=== PATIENT | female | born 1990 | race Hispanic/Latino ===

== ENCOUNTER 2020-02-16 13:52 | Emergency (ER) | payer MEDICAID, OTHER ==
[~2020-02-16 13:52] MED LIST: 0.9% SODIUM CHLORIDE 1000 ML IV BAG IV ONE
[2020-02-16] MEDS ORDERED: LIDOCAINE HCL 2% VISCOUS 15 ML UDCUP ONE (14:20)
[2020-02-16] MEDS ORDERED: MAG HYDROX/AL HYDROX/SIMETH ES 30 ML SUSP UDCUP ONE (14:20)
[2020-02-16] MEDS ORDERED: FAMOTIDINE/PF 20 MG/2 ML VIAL IV ONE (14:20)
[2020-02-16 14:23] LABS: BASOPHILS % (AUTO) 0.6 % (0.0-5.0); EOSINOPHILS % (AUTO) 5.7 % (0.0-8.0); LYMPHOCYTES % (AUTO) 27.7 % (21.0-51.0); MEAN CORPUSCULAR HEMOGLOBIN 28.8 pg (27.0-33.0); MEAN CORPUSCULAR HGB CONC 33.6 g/dL (32.0-36.0); MEAN CORPUSCULAR VOLUME 85.8 fL (79-99); MONOCYTES % (AUTO) 6.1 % (3.0-13.0); NEUTROPHILS % (AUTO) 59.7 % (40.0-77.0); PLATELET COUNT (AUTO) 315 K/uL (130-400); RED BLOOD CELL COUNT(AUTO) 5.13 MIL/uL (4.00-5.50); RED CELL DISTRIBUTION WIDTH 11.9 % (11.0-15.5); WHITE BLOOD COUNT (AUTO) 6.6 K/uL (4.8-10.8)
[2020-02-16 14:37] LABS: CREATININE 0.6 mg/dL (0.5-1.5); POTASSIUM 3.8 mmol/L (3.5-5.1)
[2020-02-16 14:41] LABS: ALBUMIN 3.6 g/dL (3.5-5.0); BILIRUBIN,TOTAL 0.6 mg/dL (0.2-1.0); TOTAL PROTEIN, SERUM 8.1 g/dL (6.0-8.3)
== END 2020-02-16 17:04 | disposition home or self-care (01) ==
LOC: EDH 13:52
DX: O26.63 Liver and biliary tract disorders in the puerperium (principal); K80.80 Other cholelithiasis without obstruction; O99.63 Diseases of the digestive system complicating the puerperium; K29.70 Gastritis, unspecified, without bleeding; O99.53 Diseases of the respiratory system complicating the puerperium; J45.909 Unspecified asthma, uncomplicated
CPT/HCPCS: 36415; 76705; 80053; 83690; 85025; 96361; 96374; 99284; J3490; J7030

== ENCOUNTER 2024-11-01 00:43 | Emergency (ER) | payer SELFPAY ==
[~2024-11-01] VITALS: Ht 160 cm; Wt 137.9 kg
--- NOTE | 2024-11-01 01:50 | ERN ---
ED Note History of Present Illness Stated Complaint: FALL Chief Complaint: Upper Extremity Pain/Injury Time Seen by MD: 00:54 Dictation: This is a 34-year-old morbidly obese female with a BMI of 54 presented to the emergency room with complaints of right arm pain extending from mid half of the upper arm to the forearm. She sustained a fall as she was getting out of truck and transferring something at 8:30 p.m. when are parents got caught in the truck hitch and she fell backwards and most of the weight was on the right elbow. She did not hit her head no loss of consciousness no nausea vomitings no other injuries. She is ambulatory she just came in because of the pain no obvious deformity noted. Temperature 98.1 pulse 76 respirations 18 blood pressure 125/83 with a pulse oximetry of 94% on room air Allergies: Coded Allergies: No Known Drug Allergies (Unverified Allergy, Unknown, 11/01/24) Home Meds Active Scripts Ketorolac Tromethamine (Toradol) 10 Mg Tab, 10 MG PO QID for pain for 5 Days, #20 TAB 0 Refills Prov:JUMA LOPEZ MD 11/01/24 Past Medical History Past Medical History: No Pertinent History Surgical History: None Surgical History Other: X3, CHOLECYSTECTOMY LMP: Oct 02, 2024 RN Note Reviewed/Agreed w/PFSH: Yes Review of System Dictation Constitutional: Negative for fever,chills, and weight loss Eyes: Negative for injury, pain,redness, and discharge ENT: Negative for injury,pain or swelling Cardiovascular: Negative for chest pain, palpitations, and edema Respiratory: Negative for shortness of breath, cough, and wheezing, Abdomen/GI: Negative for abdominal pain, nausea, vomiting, diarrhea, and constipation Back: Negative for injury and pain : Negative for injury, bleeding and discharge MS/Extremity: Negative for injury and deformity positive for right arm pain Skin: Negative for rash, and discoloration Neuro: Negative for headache, weakness, numbness, tingling, and seizure Psych: Negative for suicide ideation, homicidal ideation, and hallucinations Initial Vital Sign VS Vital Signs Date Time Temp Pulse Resp B/P (MAP) Pulse Ox O2 Delivery O2 Flow Rate FiO2 11/01/24 00:45 99.1 76 18 125/83 94 Room Air 0 11/01/24 02:39 21 Physical Exam Dictation General: awake, alert, NAD morbidly obese female Head/Face: Normocephalic, atraumatic Eyes: PERRL, EOMI, vision at baseline ENT: oral cavity clear, TMs clear, no signs of infection Neck: Trachea midline, supple, no nuchal rigidity Cardiovascular: RRR, normal S1/S2, No MRGs, no JVD Respiratory: CTAB, no respiratory distress, No rales or wheezes Abdomen: Soft, non-tender, non-distended, normal bowel sounds, no guarding or rebound. Skin: Warm, dry, normal turgor, no rash MS/Extremity: Pulses equal, no cyanosis, neurovascular intact, FROM able to move the right upper extremity but pain and tenderness on movement. No abrasions or obvious deformities were noted. Neuro: COAx4, GCS 15, strength 5/5, CN 2-12 intact, normal cerebellar exam, normal gait, Psych: Normal behavior, mood, and affect normal Extremities-trace edema without any palpable cords, Homans sign is negative Results (Laboratory/Radiology) Labs Reviewed?: Yes ED Course ED Course Orders Procedure Category Date Status Time Forearm 2vws Rt RAD 11/01/24 Resulted 00:57 Morphine 4mg Syg PHA 11/01/24 Complete (Morphine 4mg Syg) 02:00 Keep Arm Elevated & CPOE 11/01/24 Transmitted Wear Sling 01:46 Current Medications Medications (Trade) Dose Ordered Sig/Galindo Route PRN Reason Start Time Stop Time Status Last Admin Dose Admin Morphine Sulfate (morPHINE 4MG SYG) 4 mg ONCE ONCE IM 11/01/24 02:00 11/01/24 02:01 DC 11/01/24 02:21 Vital Signs Date Time Temp Pulse Resp B/P (MAP) Pulse Ox O2 Delivery O2 Flow Rate FiO2 11/01/24 02:39 98.6 74 18 122/79 99 Room Air* 0 21 11/01/24 00:45 99.1 76 18 125/83 94 Room Air 0 We will perform imaging and administer medications according to the patient's complaint. Once the results are available, will review and personally interpreted the labs to rule out any acute life-threatening emergency the trach require immediate intervention and treatment. I will then re-evaluate the patient after treatment and diagnostic exams have return to determine whether the patient requires any further testing, can safely be discharged home or need further admission to hospital for additional treatment and evaluation I updated the patient on the x-ray findings that there is no obvious displaced fracture. I recommended pain medication and an arm sling to rest her arm. Also referral to Orthopedics for further management. Medical Decision Making MDM Differential diagnosis: Fracture of humerus, fracture of radius or ulna, contusion, sprain Rationale: Tests considered and ordered secondary to shared decision making include: Previous outside records reviewed: Old ER visits. Risk of complication and/or morbidity or mortality of patient management: None Medications-Per medication reconciliation Need for hospitalization: Patient does not meet criteria for hospitalization. Need for emergency major/minor surgery: No There are no social concerns with this patient. Prescription drug management Prescriptions will include symptomatic care Patient's prior external medical records from other ER visits were reviewed by me as indicated. Prior testing and results from previous visits were reviewed. Prior tests were taken into account with medical decision making and resource utilization, independent historian/historians were used to obtain complete medical history. I independently interpreted the test that were performed, results were reviewed by me and considered findings on radiology if ordered. Medical management and examination interpretation discussions were had by me with other qualified healthcare professionals as indicated for the patient's care. Problem List Problem List: (1) Sprain of right elbow (2) History of fall (3) Morbid obesity with BMI of 50.0-59.9, adult DX & DISP Disposition: Discharge Departure Impression: Primary Impression: Sprain of right elbow Additional Impressions: History of fall, Morbid obesity with BMI of 50.0- 59.9, adult Condition: Stable Scripts Ketorolac Tromethamine (Toradol) 10 Mg Tab 10 MG PO QID for pain for 5 Days, #20 TAB 0 Refills Prov: JUMA LOPEZ MD 11/01/24 Additional Instructions: Patient and the caregiver have been informed of all the diagnostic tests and the imaging conducted during the today's visit to the emergency room and has verbalized understanding of the results I have personally reviewed and interpr eted all diagnostic exams performed here in the ER today as well as the vital signs documented by the nursing staff. The patient is now being discharged to home and should follow up with the primary care physician or the specialist as directed by the ER staff. Follow-up with primary care provider in 1 to 2 days. Take medications as directed here in the emergency room. Okay to continue home medications unless otherwise discussed during your visit in the emergency room today. Return to your nearest emergency room if symptoms worsen or if there is no improvement. Call 911 if you need immediate assistance. Take Tylenol or Motrin [id number] as needed and if no contraindications are present. Increase oral hydration. A wound culture or urine culture was ordered here in the emergency room department please follow-up with primary care provider and advise them to get repeat ports from our facility. If you had any Félix wrap/splints that were applied here, please do not remove them until you see your primary care or specialty. Ice pack and arm sling to rest her arm and referral given to Orthopedics Referrals: NONE (PCP) ZIGGY DUARTE MD [facility],JUMA Park MD Nov 01, 2024 01:50
[2024-11-01] MEDS ORDERED: KETO10 PO (02:26)
--- NOTE | 2024-11-01 02:27 | HMCIMG ---
EXAM: CR Right Forearm, 2 views. CLINICAL HISTORY: Pain. COMPARISON: None provided. FINDINGS: Nondisplaced acute intra-articular fracture of the radial head with large joint effusion and diffuse soft tissue swelling. No joint dislocation. The remaining bones are within normal limits. IMPRESSION: Nondisplaced acute intra-articular fracture of the radial head with large joint effusion and diffuse soft tissue swelling. /Gilbert
--- NOTE | 2024-11-01 02:37 | NUR ---
SLING APPLIED TO R ARM, TOLERATED WELL
[2024-11-01 02:39] VITALS: BP 122/79; PULSE 74; RESP 18; TEMP 98.6; O2SAT 99
== END 2024-11-01 02:41 | disposition home or self-care (01) ==
LOC: EDH 00:43
DX: S53.401A Unspecified sprain of right elbow, initial encounter (principal); E66.01 Morbid (severe) obesity due to excess calories; Z90.49 Acquired absence of other specified parts of digestive tract; W18.39XA Other fall on same level, initial encounter; Y93.89 Activity, other specified; Y92.89 Other specified places as the place of occurrence of the external cause; Y99.8 Other external cause status
CPT/HCPCS: 99283; 73090; 96372; J2270